=== PATIENT | female | born 1980 | race Caucasian/White ===

== ENCOUNTER 2018-02-12 16:34 | Emergency (ER) | payer OTHER ==
--- NOTE | 2018-02-12 17:59 | Ultrasound Report ---
Procedure Date: 02/12/2018 Accession Number: [id number] / [id number] Procedure: US - Duplex Ext Veins Left CPT Code: FULL RESULT: EXAM: LEFT LOWER EXTREMITY VENOUS ULTRASOUND EXAM DATE: 02/12/2018 05:38 PM. CLINICAL HISTORY: Recent travel, smokes, BCP, orthopedic surgery LLE. COMPARISON: None. TECHNIQUE: Real-time sonographic vascular imaging was performed by the hull outfit supervisor through the lower extremity utilizing both color-flow and Doppler spectral analysis. Multiple veterans contact representative static images were saved for review. FINDINGS: Common Femoral Vein (CFV): Normal. CFV-GSV Junction: Normal. Profunda Femoral Vein (PFV): Normal. Femoral Vein (FV) Prox: Normal. Femoral Vein (FV) Mid: Normal. Femoral Vein (FV) Dist: Normal. Popliteal Vein: Normal. Posterior Tibial Veins: Normal. Peroneal Veins: Normal. Contralateral Side CFV: Normal. Other: None. IMPRESSION: No evidence for deep venous thrombosis. RADIA
--- NOTE | 2018-02-12 18:37 | ED Physician Documentation ---
PD HPI LOWER EXT INJURY - Stated complaint Stated Complaint: L CALF PX - Chief complaint Chief Complaint: Ext Problem - History obtained from History obtained from: Patient, Family - History of Present Illness PD HPI LOW EXT INJURY LOCATION: Left, Lower leg Where injury occurred: Other Timing - onset: Today Timing - details: Gradual onset, Still present Worsened by: Moving, Palpating Associated symptoms: Swelling Recently seen: Not recently seen PD PAST MEDICAL HISTORY - Past Medical History Past Medical History: Yes Respiratory: Asthma - Past Surgical History Past Surgical History: Yes General: Cholecystectomy - Present Medications Home Medications: Ambulatory Orders Medication Instructions Recorded Confirmed Cyclobenzaprine [Flexeril] 10 mg ORAL QPM 02/12/18 02/12/18 Gabapentin 300 mg PO QPM 02/12/18 02/12/18 Meloxicam [Mobic] 7.5 mg PO DAILY 02/12/18 02/12/18 oxyCODONE [Roxicodone] 5 mg PO ONCE 02/12/18 02/12/18 - Allergies Allergies/Adverse Reactions: Allergies Allergy/AdvReac Type Severity Reaction Status Date / Time No Known Drug Allergies Allergy Verified 02/12/18 16:52 - Social History Does the pt smoke?: Yes Smoking Status: Current every day smoker Does the pt drink ETOH?: Yes Does the pt have substance abuse?: No - Immunizations Immunizations are current?: Yes Results - Vitals Vitals: Vital Signs - 24 hr 02/12/18 16:49 Temperature 36.5 C Heart Rate 93 Respiratory 18 Rate Blood Pressure 126/112 H O2 Saturation 100 Oxygen O2 Source Room air PD MEDICAL DECISION MAKING - Sepsis Event Vital Signs: Vital Signs - 24 hr 02/12/18 16:49 Temperature 36.5 C Heart Rate 93 Respiratory 18 Rate Blood Pressure 126/112 H O2 Saturation 100 Oxygen O2 Source Room air Departure - Departure Disposition: 01 Home, Self Care Clinical Impression: Leg pain Condition: Good Instructions: ED Muscle Pain Leg Cramps Follow-Up: LUIS ANTONIO AVILES [Primary Care Provider] - As Needed Comments: Your diagnostics today were within normal limits. there were no acute abnormalities. there was no dvt. you should keep your leg elevated and ice it as needed. You may return to the emergency department at any time for new, worsening or uncontrollable symptoms.
[2018-02-12 18:46] VITALS: BP 116/75
== END 2018-02-12 18:50 | disposition home or self-care (01) ==
LOC: ED 16:34
DX: M79.662 Pain in left lower leg (principal); M79.89 Other specified soft tissue disorders; F17.200 Nicotine dependence, unspecified, uncomplicated
CPT/HCPCS: 99281; 99283

== ENCOUNTER 2018-05-08 13:08 | Emergency (ER) | payer OTHER ==
[2018-05-08 13:35] LABS: BILIRUBIN,URINE NEGATIVE (NEGATIVE); GLUCOSE, URINE (UA) NEGATIVE (NEGATIVE); KETONES,URINE (UA) NEGATIVE (NEGATIVE); LEUKOCYTE ESTERASE, URINE NEGATIVE (NEGATIVE); NITRITE,URINE NEGATIVE (NEGATIVE); OCCULT BLOOD,URINE NEGATIVE (NEGATIVE); PROTEIN,URINE NEGATIVE (NEGATIVE); UROBILINOGEN,URINE 0.2 (NORMAL) E.U./dL (NORMAL)
[2018-05-08 13:42] LABS: CLARITY,URINE CLEAR (CLEAR); HCG UR QUAL NEGATIVE
--- NOTE | 2018-05-08 16:48 | ED Physician Documentation ---
PD HPI FEMALE - Stated complaint Stated Complaint: FEMALE - Chief complaint Chief Complaint: General - History obtained from History obtained from: Patient - History of Present Illness Timing - onset: Today Timing - details: Abrupt onset, Still present Associated symptoms: Vaginal pain, Vaginal discharge (mild), Dysuria, Urinary frequency. No: Fever, Vaginal bleeding, Genital sore/lesion Contributing factors: No: Exposed to STD Similar symptoms before: Has not had sx before Recently seen: Not recently seen Review of Systems Constitutional: denies: Fever, Chills, Myalgias Nose: denies: Rhinorrhea / runny nose, Congestion Throat: denies: Sore throat Respiratory: denies: Cough GI: denies: Abdominal Pain, Nausea, Vomiting, Diarrhea : reports: Dysuria, Frequency, Discharge (mild white/mucous). denies: Vaginal bleeding Skin: denies: Rash, Lesions PD PAST MEDICAL HISTORY - Past Medical History Respiratory: Asthma - Past Surgical History Past Surgical History: Yes General: Cholecystectomy - Present Medications Home Medications: Ambulatory Orders Medication Instructions Recorded Confirmed Metronidazole [Flagyl] 500 mg PO BID #14 tablet 05/08/18 Naproxen 375 mg PO BID #20 tablet 05/08/18 Omeprazole 20 mg PO 05/08/18 Phenazopyridine [Pyridium] 100 mg PO TID PRN #15 tablet 05/08/18 Pregabalin [Lyrica] 75 mg PO 05/08/18 - Allergies Allergies/Adverse Reactions: Allergies Allergy/AdvReac Type Severity Reaction Status Date / Time No Known Drug Allergies Allergy Verified 05/08/18 13:14 - Social History Does the pt smoke?: Yes Smoking Status: Current every day smoker Does the pt drink ETOH?: Yes Does the pt have substance abuse?: No - Immunizations Immunizations are current?: Yes PD ED PE NORMAL - Vitals Vital signs reviewed: Yes - General General: Alert and oriented X 3, No acute distress, Well developed/nourished - HEENT HEENT: Pharynx benign - Neck Neck: Supple, no meningeal sign, No adenopathy - Cardiac Cardiac: RRR, No murmur - Respiratory Respiratory: Clear bilaterally - Abdomen Abdomen: Normal bowel sounds, Soft, Non tender, Non distended, No organomegaly - Female Female : [employer] present, Other (external normal. Mild white discharge and redness inner labia left. Vaginal vault with moderate white milky discharge with some odor. Cervix with mild redness. No bleeding. No FB. ) - Rectal Rectal: Deferred Results - Vitals Vitals: Vital Signs - 24 hr 05/08/18 13:13 Temperature 36.4 C L Heart Rate 88 Respiratory 18 Rate Blood Pressure 120/71 O2 Saturation 97 Oxygen O2 Source Room air - Labs Labs: Laboratory Tests 05/08/18 13:30 Urine Color YELLOW Urine Clarity CLEAR Urine pH 5.0 Ur Specific [place] 1.025 Urine Protein NEGATIVE Urine Glucose (UA) NEGATIVE Urine Ketones NEGATIVE Urine Occult Blood NEGATIVE Urine Nitrite NEGATIVE Urine Bilirubin NEGATIVE Urine Urobilinogen 0.2 (NORMAL) Ur Leukocyte Esterase NEGATIVE Ur Microscopic Review NOT INDICATED Urine Culture Comments NOT INDICATED Urine HCG, Qual NEGATIVE PD MEDICAL DECISION MAKING - ED course Complexity details: reviewed results, considered differential (has dysuria but UA is negative. Pelvic exam with moderate white discharge and cervical redness c/w BV. Will treat that way. Some element could be yeast. ), d/w patient - Sepsis Event Vital Signs: Vital Signs - 24 hr 05/08/18 13:13 Temperature 36.4 C L Heart Rate 88 Respiratory 18 Rate Blood Pressure 120/71 O2 Saturation 97 Oxygen O2 Source Room air Departure - Departure Disposition: 01 Home, Self Care Clinical Impression: Dysuria, Bacterial vaginal infection Condition: Stable Record reviewed to determine appropriate education?: Yes Instructions: ED Vaginosis Bacterial Prescriptions: Metronidazole [Flagyl] 500 mg PO BID #14 tablet Naproxen 375 mg PO BID #20 tablet Phenazopyridine [Pyridium] 100 mg PO TID PRN #15 tablet PRN Reason: Pain Comments: Your urine sample looked normal. He did have a vaginal discharge that would be consistent with vaginitis presumably bacterial. We will treat this with Flagyl twice daily and also some anti-inflammatory naproxen twice daily. Use Tylenol if needed. Pyridium can help with the discomfort of urination which is a irritation of the urethra from the vaginitis. Recheck if not improving over the next several days to week. Discharge Date/Time: 05/08/18 17:43
[2018-05-08] MEDS ORDERED: metroNIDAZOLE 250 MG TABLET PO STA (17:19)
[2018-05-08] MEDS ORDERED: NAPROXEN 250 MG TABLET PO STA (17:19)
[2018-05-08] MEDS ORDERED: FLUCONAZOLE 100 MG TABLET PO STA (17:22)
[2018-05-08 17:43] VITALS: BP 118/74
== END 2018-05-08 17:43 | disposition home or self-care (01) ==
LOC: ED 13:08
DX: R30.0 Dysuria (principal); A49.9 Bacterial infection, unspecified; F17.200 Nicotine dependence, unspecified, uncomplicated
CPT/HCPCS: 81003; 81025; 87210; 87491; 87591; 99283; A9270; 81001; 87086

== ENCOUNTER 2018-07-26 16:20 | Emergency (ER) | payer OTHER ==
--- NOTE | 2018-07-26 17:31 | ED Physician Documentation ---
PD HPI LOWER EXT INJURY - Stated complaint Stated Complaint: L FT PX - Chief complaint Chief Complaint: Ext Problem - History obtained from History obtained from: Patient - History of Present Illness PD HPI LOW EXT INJURY LOCATION: Left (She has had multiple surgeries on her foot and leg and has had several nerves removed from her left lower leg. Today they noticed purple discoloration of the great toe. The foot is pretty much insensate at this point. They were worried about a vascular issue.) Review of Systems Constitutional: denies: Fever, Chills Respiratory: denies: Cough GI: denies: Abdominal Pain, Nausea : denies: Dysuria PD PAST MEDICAL HISTORY - Past Medical History Respiratory: Asthma - Past Surgical History Past Surgical History: Yes General: Cholecystectomy - Present Medications Home Medications: Ambulatory Orders Medication Instructions Recorded Confirmed Omeprazole 20 mg PO 05/08/18 Pregabalin [Lyrica] 75 mg PO 05/08/18 - Allergies Allergies/Adverse Reactions: Allergies Allergy/AdvReac Type Severity Reaction Status Date / Time No Known Drug Allergies Allergy Verified 07/26/18 16:37 - Social History Does the pt smoke?: Yes Smoking Status: Current every day smoker Does the pt drink ETOH?: Yes Does the pt have substance abuse?: No - Immunizations Immunizations are current?: Yes PD ED PE NORMAL - Vitals Vital signs reviewed: Yes - General General: Alert and oriented X 3, No acute distress - Extremities Extremities: Other (There is slight purplish discoloration of the tip of the great toe but with good cap refill and normal pedal pulses.) - Neuro Neuro: Alert and oriented X 3, Normal speech Results - Vitals Vitals: Vital Signs - 24 hr 07/26/18 16:34 Temperature 36.6 C Heart Rate 99 Respiratory 20 Rate Blood Pressure 129/98 H O2 Saturation 98 Oxygen O2 Source Room air PD MEDICAL DECISION MAKING - ED course ED course: I discussed with him that these findings are likely due to the decreasedAnd this may be an ongoing issue especially when it is cold. function in her left foot because of the surgery she has had there is no evidence of an active vascular issue. Departure - Departure Disposition: 01 Home, Self Care Clinical Impression: Injury of peripheral nerve of left lower extremity at foot level Qualifiers: Encounter type: initial encounter Peripheral nerve of lower extremity: deep peroneal Qualified Code(s): S94.22XA - Injury of deep peroneal nerve at ankle and foot level, left leg, initial encounter Condition: Good Record reviewed to determine appropriate education?: Yes Comments: Return for blue discoloration of the toes or pain or new findings. Follow-up with your surgeon as needed.
[2018-07-26 17:42] VITALS: BP 126/88
== END 2018-07-26 17:41 | disposition home or self-care (01) ==
LOC: ED 16:20
DX: S94.22XA Injury of deep peroneal nerve at ankle and foot level, left leg, initial encounter (principal); X58.XXXA Exposure to other specified factors, initial encounter; F17.200 Nicotine dependence, unspecified, uncomplicated
CPT/HCPCS: 99282; 99283

== ENCOUNTER 2019-07-10 11:27 | Emergency (ER) | payer OTHER ==
[2019-07-10 12:40] LABS: BILIRUBIN,URINE NEGATIVE (NEGATIVE); GLUCOSE, URINE (UA) NEGATIVE (NEGATIVE); KETONES,URINE (UA) NEGATIVE (NEGATIVE); LEUKOCYTE ESTERASE, URINE NEGATIVE (NEGATIVE); NITRITE,URINE NEGATIVE (NEGATIVE); OCCULT BLOOD,URINE NEGATIVE (NEGATIVE); PH,URINE 5.5 PH (5.0-7.5); PROTEIN,URINE NEGATIVE (NEGATIVE); UROBILINOGEN,URINE 0.2 (NORMAL) E.U./dL (NORMAL)
[2019-07-10 12:43] LABS: HCG UR QUAL NEGATIVE
--- NOTE | 2019-07-10 12:47 | ED Physician Documentation ---
History of Present Illness - Stated complaint Stated Complaint: BACK PX/CHILLS - Chief complaint Chief Complaint: General - History obtained from History obtained from: Patient - History of Present Illness Timing: How many days ago (4) Pain level max: 5 Pain level now: 4 - Additonal information Additional information: 38-year-old female states that she has had dysuria, urinary frequency and urgency for the past 4 days. Now has low back pain and chills. She also recently started Cymbalta, she is concerned that this could be a medication side effect. No vaginal bleeding or discharge. No change in sexual partners. No vomiting. She denies any fevers. Worse with urination. Nothing makes it better Review of Systems Ten Systems: 10 systems reviewed and negative Constitutional: reports: Chills. denies: Fever Nose: denies: Rhinorrhea / runny nose, Congestion Cardiac: denies: Palpitations Respiratory: denies: Cough GI: denies: Abdominal Pain, Nausea, Vomiting, Diarrhea : reports: Dysuria, Frequency, Hesitancy. denies: Now EGA Skin: denies: Rash Musculoskeletal: denies: Neck pain Neurologic: denies: Focal weakness, Numbness, Headache PD PAST MEDICAL HISTORY - Past Medical History Respiratory: Asthma - Past Surgical History Past Surgical History: Yes General: Cholecystectomy - Present Medications Home Medications: Ambulatory Orders Medication Instructions Recorded Confirmed Omeprazole 20 mg PO 05/08/18 Pregabalin [Lyrica] 75 mg PO 05/08/18 Cephalexin [Keflex] 500 mg PO Q6H #28 capsule 07/10/19 - Allergies Allergies/Adverse Reactions: Allergies Allergy/AdvReac Type Severity Reaction Status Date / Time No Known Drug Allergies Allergy Verified 07/10/19 11:43 - Social History Does the pt smoke?: Yes Smoking Status: Current every day smoker Does the pt drink ETOH?: Yes Does the pt have substance abuse?: No - Immunizations Immunizations are current?: Yes PD ED PE NORMAL - Vitals Vital signs reviewed: Yes - General General: Alert and oriented X 3, No acute distress - HEENT HEENT: Moist mucous membranes - Neck Neck: Supple, no meningeal sign - Cardiac Cardiac: RRR, Strong equal pulses - Respiratory Respiratory: No respiratory distress, Clear bilaterally - Abdomen Abdomen: Soft, Non tender, Non distended - Back Back: No spinal TTP (No midline tenderness to palpation or percussion. Mild left CVA tenderness.) - Derm Derm: Warm and dry - Extremities Extremities: No edema - Neuro Neuro: Alert and oriented X 3 - Psych Psych: Normal mood, Normal affect Results - Vitals Vitals: Vital Signs - 24 hr 07/10/19 07/10/19 11:39 13:03 Temperature 36.9 C Heart Rate 97 86 Respiratory 14 18 Rate Blood Pressure 124/89 H 119/82 H O2 Saturation 99 100 Oxygen O2 Source Room air - Labs Labs: Laboratory Tests 07/10/19 12:30 Urine Color YELLOW Urine Clarity [place]ZY Urine pH 5.5 Ur Specific [place] 1.025 Urine Protein NEGATIVE Urine Glucose (UA) NEGATIVE Urine Ketones NEGATIVE Urine Occult Blood NEGATIVE Urine Nitrite NEGATIVE Urine Bilirubin NEGATIVE Urine Urobilinogen 0.2 (NORMAL) Ur Leukocyte Esterase NEGATIVE Urine RBC 0-5 Urine WBC 4-5 Ur Squamous Epith Cells MANY Squamous H Urine Bacteria Many H Urine Mucus Marked Strands Ur Microscopic Review INDICATED Urine Culture Comments NOT INDICATED Urine HCG, Qual NEGATIVE PD MEDICAL DECISION MAKING - ED course Complexity details: reviewed results, re-evaluated patient, considered differential, d/w patient ED course: Patient with symptoms consistent with a UTI, possible early pyelo? Urinalysis is normal, but she did urinate just prior to arrival. Possible false negative? We will treat with Keflex and have her follow-up with her doctor for further care. She is very well-appearing, nontoxic. Afebrile. Patient counseled regarding signs and symptoms for which I believe and urgent re-evaluation would be necessary. Patient with good understanding of and agreement to plan and is comfortable going home at this time This document was made in part using voice recognition software. While efforts are made to proofread this document, sound alike and grammatical errors may occur. Departure - Departure Disposition: Home, Self Care Clinical Impression: Dysuria Back pain Qualifiers: Back pain location: low back pain Chronicity: acute Back pain laterality: left Sciatica presence: without sciatica Qualified Code(s): M54.5 - Low back pain Condition: Good Instructions: ED Dysuria Uncertain Cause Follow-Up: Lia Vera, [employer] [Primary Care Provider] - Within 1 week Prescriptions: Cephalexin [Keflex] 500 mg PO Q6H #28 capsule Comments: Given your symptoms, I am concerned for a UTI, despite a normal urinalysis. Take all antibiotics until gone. Return if you worsen. This could be due to the cymbalta, but I would take the antibiotics first to see how you progress before stopping it. Discharge Date/Time: 07/10/19 13:04
[2019-07-10 12:53] LABS: CLARITY,URINE HAZY (CLEAR)
[2019-07-10 13:04] VITALS: BP 119/82
[2019-07-10 13:04] LABS: BACTERIA,URINE Many /HPF (None Seen); MUCUS,URINE Marked Strands; RBC,URINE 0-5 /HPF (0-5); SQUAMOUS EPITHELIAL CELL,UR MANY Squamous (<= Few)
== END 2019-07-10 13:04 | disposition home or self-care (01) ==
LOC: ED 11:27
DX: R30.0 Dysuria (principal); R35.0 Frequency of micturition; M54.5 Low back pain; F17.200 Nicotine dependence, unspecified, uncomplicated
CPT/HCPCS: 81001; 81003; 81025; 87086; 99283

== ENCOUNTER 2019-08-30 17:10 | Emergency (ER) | payer OTHER ==
--- NOTE | 2019-08-30 17:31 | ED Physician Documentation ---
PD HPI LOWER EXT INJURY - Stated complaint Stated Complaint: LT FOOT PX - History obtained from History obtained from: Patient - History of Present Illness PD HPI LOW EXT INJURY LOCATION: Left, Toe (great toe with area of black skin and tenderness. Had this 1-2 months ago and thought it was a spot of frostbite (had been exposed to cold air, no cold contact nor wetness). It was 1/2 cm black area and then started hurting more and developed into pustule. Rx with Cephalexin and improved to small scaly spot that did not fully heal. Seem by PMD and had xray and bone scan 2 days ago at [facility]. 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 She felt it got cold injury again at the spot.). No: Fall, Laceration Timing - onset: How many days ago (few days of increased more than usual) Timing - details: Gradual onset Worsened by: Palpating. No: Moving Associated symptoms: Numbness. No: Weakness, Swelling Review of Systems Constitutional: denies: Fever, Chills Nose: denies: Rhinorrhea / runny nose, Congestion Throat: denies: Sore throat Respiratory: denies: Cough PD PAST MEDICAL HISTORY - Past Medical History Respiratory: Asthma - Past Surgical History Past Surgical History: Yes General: Cholecystectomy - Present Medications Home Medications: Ambulatory Orders Medication Instructions Recorded Confirmed Omeprazole 20 mg PO 05/08/18 Pregabalin [Lyrica] 75 mg PO 05/08/18 Cephalexin [Keflex] 500 mg PO Q6H #28 capsule 07/10/19 Capsaicin 1 applic TP TID #42.5 cream..g. 08/30/19 Doxycycline Monohydrate 100 mg PO BID #14 tablet 08/30/19 Hydrocodone/Acetaminophen [[place] 1 each PO Q6H PRN #20 tablet 08/30/19 5-325 Tablet] Naproxen 375 mg PO BID #20 tablet 08/30/19 - Allergies Allergies/Adverse Reactions: Allergies Allergy/AdvReac Type Severity Reaction Status Date / Time No Known Drug Allergies Allergy Verified 07/10/19 11:43 - Social History Does the pt smoke?: Yes Smoking Status: Current every day smoker Does the pt drink ETOH?: Yes Does the pt have substance abuse?: No - Immunizations Immunizations are current?: Yes PD ED PE NORMAL - Vitals Vital signs reviewed: Yes - General General: Alert and oriented X 3, No acute distress, Well developed/nourished - Neuro Neuro: Alert and oriented X 3, No motor deficit, Other (decreased sensation in great toe and dorsum of foot, baseline per patient from prior foot surgery. There is small 1/2 cm rounded area of dark skin (purple to black) at tip of great toe, with scaly edge. No discharge. There is good color and cap refill at proximal part of distal phalanx, just proximal to the dark area. Could be c/w prior frostbite at the tip of the toe. ) Results - Vitals Vitals: Oxygen O2 Source Room air PD MEDICAL DECISION MAKING - ED course Complexity details: reviewed results (Bone scan and xray report from [facility] showed normal xray and the bone scan showed normal bone; it says there was diminished flow in left foot c/w vasospasm.), considered differential (has CRPS and has black spot at tip of toe that is painful. Had had pustule there month ago and Rx with Keflex, and mostly improved but still small scaly skin lesion. Is hurting more the past couple of days. Had Bone scan 3 days ago at [facility] to evaluate the prior episode. ), d/w patient ED course: the tip of toe almost looks ischemic but just at 1/2 cm area, and there is good color and cap refill just below it. Consider frostbite lesion as she thinks. Could have been end vessel occlusive lesion from spasm. Consider early infect again, as it had gotten a month ago. So NSAIDs, abx, and also consider baby ASA with concern of low flow. Talked with patient about improving flow at time (woul d be potential for frostbite lesion, though studies of this in frostbite have been neutral/nonbeneficial). Departure - Departure Disposition: 01 Home, Self Care Clinical Impression: Pain of left great toe Condition: Stable Record reviewed to determine appropriate education?: Yes Follow-Up: Lia Vera, OPERATING SYSTEMS PROGRAMMER [Primary Care Provider] - Prescriptions: Capsaicin 1 applic TP TID #42.5 cream..g. Doxycycline Monohydrate 100 mg PO BID #14 tablet Hydrocodone/Acetaminophen [[place] 5-325 Tablet] 1 each PO Q6H PRN #20 tablet PRN Reason: Pain Naproxen 375 mg PO BID #20 tablet Comments: You can continue some moisturizing cream for the tip of the toe. Also consider augmenting blood flow with capsaicin cream lightly to the toe to 3 times a day. Take a baby aspirin daily to ensure there is good blood flow with no clogging in the small vessels at the tip of the toe. Currently for the pain take naproxen anti-inflammatory twice daily and add Tylenol or hydrocodone if needed for pain. With concern of an infection brewing at the area, also take doxycycline twice daily for a week. Recheck if not improved well over the next several days. Discharge Date/Time: 08/30/19 19:33
[2019-08-30 17:37] VITALS: BP 132/100
[2019-08-30] MEDS ORDERED: oxyCODONE 5 MG TABLET PO STA (17:59)
[2019-08-30] MEDS ORDERED: NAPROXEN 250 MG TABLET PO STA (18:00)
[2019-08-30] MEDS ORDERED: ASPIRIN EC 81 MG TABLET PO STA (18:00)
[2019-08-30] MEDS ORDERED: DOXYCYCLINE 100 MG TABLET PO STA (18:00)
== END 2019-08-30 19:33 | disposition home or self-care (01) ==
LOC: ED 17:10
DX: M79.675 Pain in left toe(s) (principal); F17.200 Nicotine dependence, unspecified, uncomplicated
CPT/HCPCS: 99283; A9270

== ENCOUNTER 2020-02-01 16:48 | Emergency (ER) | payer OTHER ==
[2020-02-01] MEDS ORDERED: LIDOCAINE VISCOUS 2% 15 ML UDC MM STA (17:02)
[2020-02-01] MEDS ORDERED: MAG HYDROX/AL HYDROX/SIMETH 30 ML UDC PO STA (17:02)
[2020-02-01] MEDS ORDERED: SUCRALFATE 1 GM/10 ML UDC PO STA (17:02)
[2020-02-01] MEDS ORDERED: FAMOTIDINE 20 MG TABLET PO STA (17:02)
--- NOTE | 2020-02-01 17:32 | ED Physician Documentation ---
PD HPI ABD PAIN - Stated complaint Stated Complaint: ABD PX/BACK PX - Chief complaint Chief Complaint: Abd Pain - History obtained from History obtained from: Patient - History of Present Illness Timing - onset: How many weeks ago (1) Timing - duration: Weeks (1) Timing - details: Gradual onset Pain level max: 8 Pain level now: 8 Quality: Aching, Pain Location: Epigastric Radiation: No: Chest, , Lower back, Left flank, Left shoulder, Right flank, Right shoulder, Upper back Improved by: Other (nothing) Worsened by: Eating - Additional information Additional information: 39-year-old female presents to the emergency department stating that she was taking very high doses of meloxicam recently. She started at 30 mg daily, then 30 mg twice a day and eventually got up to 90 mg daily. Has had abdominal pain since that time. Started on Prilosec 1 week ago. Increasing pain today. She states that her stools were dark this morning, but no nghia blood. 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) - Past Surgical History Past Surgical History: Yes General: Cholecystectomy - Present Medications Home Medications: Ambulatory Orders Medication Instructions Recorded Confirmed Famotidine [Pepcid] 20 mg PO BID #60 tablet 02/01/20 Hydrocodone/Acetaminophen [[place] 1 each PO ONCE PRN 02/01/20 02/01/20 5-325 Tablet] Omeprazole 40 mg PO DAILY 02/01/20 02/01/20 Oxycodone HCl/Acetaminophen 1 - 2 each PO Q6H PRN #10 tablet 02/01/20 [Percocet 5-325 mg Tablet] Sucralfate [Carafate] 1 gm PO ACHS #60 tablet 02/01/20 Trazodone HCl 100 mg PO QPM 02/01/20 02/01/20 - Allergies Allergies/Adverse Reactions: Allergies Allergy/AdvReac Type Severity Reaction Status Date / Time No Known Drug Allergies Allergy Verified 02/01/20 16:56 - Social History Does the pt smoke?: Yes Smoking Status: Current every day smoker Does the pt drink ETOH?: Yes Does the pt have substance abuse?: No - Immunizations Immunizations are current?: Yes PD ED PE NORMAL - Vitals Vital signs reviewed: Yes - General General: Alert and oriented X 3, No acute distress, Well developed/nourished - HEENT HEENT: Moist mucous membranes - Neck Neck: Supple, no meningeal sign - Cardiac Cardiac: RRR - Respiratory Respiratory: No respiratory distress, Clear bilaterally - Abdomen Abdomen: Soft, Non distended, Other (Tender to palpation epigastric without peritoneal signs) - Back Back: No CVA TTP - Derm Derm: Warm and dry - Extremities Extremities: No edema - Neuro Neuro: Alert and oriented X 3 - Psych Psych: Normal mood, Normal affect Results - Vitals Vitals: Vital Signs - 24 hr 02/01/20 02/01/20 02/01/20 16:52 16:57 19:14 Temperature 36.3 C L Heart Rate 101 H 104 H 87 Respiratory 18 16 18 Rate Blood Pressure 126/77 134/88 H 124/77 O2 Saturation 97 98 100 Oxygen O2 Source Room air - Labs Labs: Laboratory Tests 02/01/20 02/01/20 02/01/20 17:30 17:30 17:30 WBC 8.4 RBC 4.28 Hgb 13.2 Hct 38.9 MCV 90.9 MCH 30.8 MCHC 33.9 RDW 12.5 Plt Count 456 H MPV 9.3 Neut # (Auto) 4.5 Lymph # (Auto) 2.9 [place] # (Auto) 0.7 Eos # (Auto) 0.2 Baso # (Auto) 0.1 Absolute Nucleated RBC 0.00 Nucleated RBC % 0.0 Sodium 136 Potassium 3.8 Chloride 102 Carbon Dioxide 26 Anion Gap 8.0 BUN 14 Creatinine 1.0 Estimated GFR (MDRD) 62 L Glucose 84 Calcium 9.3 Total Bilirubin 0.4 AST 19 ALT 29 Alkaline Phosphatase 91 Total Protein 7.6 Albumin 4.5 Globulin 3.1 Albumin/Globulin Ratio 1.5 Lipase 22 Urine Color YELLOW Urine Clarity CLEAR Urine pH 7.0 Ur Specific [place] 1.015 Urine Protein NEGATIVE Urine Glucose (UA) NEGATIVE Urine Ketones NEGATIVE Urine Occult Blood TRACE-INTA Urine Nitrite NEGATIVE Urine Bilirubin NEGATIVE Urine Urobilinogen 0.2 (NORMAL) Ur Leukocyte Esterase NEGATIVE Ur Microscopic Review NOT INDICATED Urine Culture Comments NOT INDICATED Urine HCG, Qual NEGATIVE - Rads (name of study) CT abdomen pelvis Radiology: Prelim report reviewed, EMP read contemporaneously, See rad report PD MEDICAL DECISION MAKING - ED course Complexity details: reviewed results, re-evaluated patient, considered differential, d/w patient ED course: Patient with what appears to be gastritis from overuse of meloxicam. She is already on a PPI. We will add an H2 renee and Carafate. She has hydrocodone at home for pain. Counseled regarding dietary changes. Patient counseled regarding signs and symptoms for which I believe and urgent re-evaluation would be necessary. Patient with good understanding of and agreement to plan and is comfortable going home at this time This document was made in part using voice recognition software. While efforts are made to proofread this document, sound alike and grammatical errors may occur. No lower abdominal or pelvic pain. No flank pain 1. Nonobstructing bilateral nephrolithiasis. 2. 2 mm calculus at the left ureterovesicular junction. There is no upstream hydroureter or hydronephrosis suggesting this is a nonobstructing stone; however ureteral colic may be present. Please correlate clinically. 3. No other acute intra-abdominal findings. Normal appendix. 4. Questionable pedunculated uterine fibroid. Nonemergent pelvic ultrasound recommended to further characterize this finding. 5. Enlarged bilateral ovaries. The significance of this finding is unclear. If there is clinical suspicion for ovarian torsion, emergent pelvic ultrasound could be used to ensure adequate blood flow bilaterally. Alternatively, nonemergent pelvic ultrasound could be used to further characterize findings Departure - Departure Disposition: 01 Home, Self Care Clinical Impression: Gastritis Qualifiers: Gastritis type: unspecified gastritis Chronicity: acute Gastritis bleeding: presence of bleeding unspecified Qualified Code(s): K29.00 - Acute gastritis without bleeding Condition: Good Instructions: ED Gastritis Follow-Up: Lia Vera ARNP [Primary Care Provider] - Within 3 Days Prescriptions: Sucralfate [Carafate] 1 gm PO ACHS #60 tablet Famotidine [Pepcid] 20 mg PO BID #60 tablet Oxycodone HCl/Acetaminophen [Percocet 5-325 mg Tablet] 1 - 2 each PO Q6H PRN #10 tablet PRN Reason: pain Comments: Avoid any fried, spicy foods. Avoid any caffeine. Avoid any anti- inflammatories. Avoid alcohol. We will add Pepcid to your medication list as well as Carafate. Follow-up with your doctor for further care. Do not drink alcohol or drive while on narcotic pain medicine. Note that many narcotic pain relievers also contain tylenol/acetaminophen. Please ensure that your total dose of acetaminophen from all sources does not exceed 3 grams (3000mg) per day. You may constipated on this medication, take a stool softener such as "Colace" t wice a day while you are on it. Also recommend a [id number] laxative such as senna or MiraLAX any day that you do not have a bowel movement. If you received narcotic pain medication in the emergency department, do not drive or operate machinery for the next [address] scan results. 1. Nonobstructing bilateral nephrolithiasis. 2. 2 mm calculus at the left ureterovesicular junction. There is no upstream hydroureter or hydronephrosis suggesting this is a nonobstructing stone; however ureteral colic may be present. Please correlate clinically. 3. No other acute intra-abdominal findings. Normal appendix. 4. Questionable pedunculated uterine fibroid. Nonemergent pelvic ultrasound recommended to further characterize this finding. 5. Enlarged bilateral ovaries. The significance of this finding is unclear. If there is clinical suspicion for ovarian torsion, emergent pelvic ultrasound could be used to ensure adequate blood flow bilaterally. Alternatively, nonemergent pelvic ultrasound could be used to further characterize findings.
[2020-02-01] MEDS ORDERED: IOVERSOL 320 100 ML VIAL IVP ONE ×2 (17:36→19:06)
[2020-02-01] MEDS ORDERED: IOVERSOL 320 50 ML VIAL ONE (17:36)
[2020-02-01 17:44] LABS: BASOPHILS # (AUTO) 0.1 10^3/uL (0.0-0.1); BASOPHILS % (AUTO) 0.7 %; EOSINOPHILS # (AUTO) 0.2 10^3/uL (0.0-0.7); EOSINOPHILS % (AUTO) 1.8 %; HGB - HEMOGLOBIN 13.2 g/dL (12.0-16.0); LYMPHOCYTES # (AUTO) 2.9 10^3/uL (1.5-3.5); LYMPHOCYTES % (AUTO) 34.9 %; MEAN CORPUSCULAR HEMOGLOBIN 30.8 pg (27.0-31.0); MEAN CORPUSCULAR HGB CONC 33.9 g/dL (32.0-36.0); MEAN CORPUSCULAR VOLUME 90.9 fL (81.0-99.0); MEAN PLATELET VOLUME 9.3 fL (7.9-10.8); MONOCYTES # (AUTO) 0.7 10^3/uL (0.0-1.0); MONOCYTES % (AUTO) 8.8 %; NEUTROPHILS # (AUTO) 4.5 10^3/uL (1.5-6.6); NEUTROPHILS % (AUTO) 53.4 %; PLT - PLATELET COUNT 456 10^3/uL (130-450); RED BLOOD COUNT 4.28 10^6/uL (4.20-5.40); RED CELL DISTRIBUTION WIDTH 12.5 % (12.0-15.0); WHITE BLOOD COUNT 8.4 x10^3/uL (4.8-10.8)
[2020-02-01 17:51] LABS: BILIRUBIN,URINE NEGATIVE (NEGATIVE); GLUCOSE, URINE (UA) NEGATIVE (NEGATIVE); KETONES,URINE (UA) NEGATIVE (NEGATIVE); LEUKOCYTE ESTERASE, URINE NEGATIVE (NEGATIVE); NITRITE,URINE NEGATIVE (NEGATIVE); OCCULT BLOOD,URINE TRACE-INTA (NEGATIVE); PROTEIN,URINE NEGATIVE (NEGATIVE); UROBILINOGEN,URINE 0.2 (NORMAL) E.U./dL (NORMAL)
[2020-02-01 17:53] LABS: CLARITY,URINE CLEAR (CLEAR)
[2020-02-01 17:54] LABS: HCG UR QUAL NEGATIVE
[2020-02-01 17:58] LABS: ALBUMIN 4.5 g/dL (3.2-5.5); ALBUMIN/GLOBULIN RATIO 1.5 (1.0-2.2); BILIRUBIN,TOTAL 0.4 mg/dL (0.2-1.0); CALCIUM 9.3 mg/dL (8.5-10.3); TOTAL PROTEIN 7.6 g/dL (6.7-8.2)
[2020-02-01] MEDS ORDERED: MORPHINE 2 MG/ML CARPUJECT IVP STA ×2 (18:29→19:24)
[2020-02-01] MEDS ORDERED: IOVERSOL 320 50 ML VIAL PO ONE (19:06)
[2020-02-01 19:15] VITALS: BP 124/77
[2020-02-01] MEDS ORDERED: PANTOPRAZOLE 40 MG VIAL IVP STA (19:24)
--- NOTE | 2020-02-01 19:28 | CT Report ---
PROCEDURE: Abdomen/Pelvis W INDICATIONS: h/o ulcers, now diffuse abd pain CONTRAST: IV CONTRAST: Optiray 320 ml: 100 PO CONTRAST: Optiray 320 ml50 TECHNIQUE: After the administration of oral and intravenous contrast, 5 mm thick sections acquired from the diap hragms to the symphysis. 5 mm thick coronal and sagittal reformats were acquired. For radiation dos e reduction, the following was used: automated exposure control, adjustment of mA and/or kV accordin g to patient size. COMPARISON: None. FINDINGS: Image quality: Excellent. ABDOMEN: Lung bases: Lung bases are clear. Heart size is normal. Solid organs: Liver and spleen are normal in size and enhancement. Focal fat is present at the falci form ligament. Gallbladder is surgically absent Biliary system is non dilated. Pancreas enhances no rmally. No adrenal nodules. Kidneys demonstrate normal size and enhancement, without hydronephrosis . 3 mm nonobstructing calculi are present within the lower pole of the right kidney and 2 mm nonobst ructing calculi are present within the left renal collecting system. No right ureterolithiasis. There is a 2 mm calculus at the left ureterovesicular junction (series 3/image 88). No hydroureter. Peritoneum and bowel: Bowel loops demonstrate normal wall thickness and caliber. The appendix is thi n walled and gas-filled. No free fluid or air. Nodes and vessels: No retroperitoneal or mesenteric adenopathy by size criteria. Aorta and inferior vena cava are normal in size. Miscellaneous: No ventral hernias. PELVIS: Genitourinary: Bladder wall thickness is normal. No bladder calculi. The uterus is grossly unremark able. There is likely a pedunculated fibroid off the anterior left uterus. The bilateral ovaries appe ar enlarged raising the suspicion for the presence of multiple follicular cysts. Miscellaneous: No inguinal hernias or adenopathy. Bones: No suspicious bony lesions. No vertebral body compression fractures. IMPRESSION: 1. Nonobstructing bilateral nephrolithiasis. 2. 2 mm calculus at the left ureterovesicular junction. There is no upstream hydroureter or hydroneph rosis suggesting this is a nonobstructing stone; however ureteral colic may be present. Please correl ate clinically. 3. No other acute intra-abdominal findings. Normal appendix. 4. Questionable pedunculated uterine fibroid. Nonemergent pelvic ultrasound recommended to further ch aracterize this finding. 5. Enlarged bilateral ovaries. The significance of this finding is unclear. If there is clinical susp icion for ovarian torsion, emergent pelvic ultrasound could be used to ensure adequate blood flow corky aterally. Alternatively, nonemergent pelvic ultrasound could be used to further characterize findings . These findings were discussed with Dr. Alejandro at 7:26 PM on 02/01/2020. Reviewed by: Nelly Blackmon MD on 02/01/2020 7:26 PM PDT Approved by: Nelly Blackmon MD on 02/01/2020 7:26 PM PDT Station ID: [id number]
[2020-02-01] MEDS ORDERED: oxyCODONE 5 MG TABLET PO STA (19:48)
== END 2020-02-01 20:04 | disposition home or self-care (01) ==
LOC: ED 16:48
DX: K29.00 Acute gastritis without bleeding (principal); N20.2 Calculus of kidney with calculus of ureter; E28.2 Polycystic ovarian syndrome; F17.200 Nicotine dependence, unspecified, uncomplicated
CPT/HCPCS: 36415; 74177; 80053; 81003; 81025; 83690; 85025; 96374; 96376; 99284; A9270; Q9967; 81001; 87086

== ENCOUNTER 2020-04-13 09:11 | Emergency (ER) | payer OTHER ==
--- NOTE | 2020-04-13 09:22 | ED Physician Documentation ---
PD HPI SKIN - Stated complaint Stated Complaint: RASH - Chief complaint Chief Complaint: Wound - History obtained from History obtained from: Patient - History of Present Illness Timing - onset: How many days ago (4) Timing - duration: Days (4) Timing - details: Gradual onset (had pain lower lumbar back to left and now with some rash since yesterday.), Still present Location: Abdomen, Back Quality / character: Painful (mild), Burning Associated symptoms: No: Fever, Myalgias, N/V/D Contributing factors: No: Recent illness Similar symptoms before: Diagnosis (had shingles on lower leg in the past.) Review of Systems Constitutional: denies: Fever, Chills Nose: denies: Rhinorrhea / runny nose, Congestion Throat: denies: Sore throat Respiratory: denies: Cough GI: denies: Abdominal Pain, Nausea, Vomiting, Diarrhea Skin: reports: Rash (since yesterday) Musculoskeletal: reports: Back pain PD PAST MEDICAL HISTORY - Past Medical History Past Medical History: Yes Cardiovascular: None Respiratory: Asthma Neuro: None Endocrine/Autoimmune: None GI: GERD 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 HEENT: None Psych: None Musculoskeletal: None Derm: Herpes zoster - Past Surgical History Past Surgical History: Yes General: Cholecystectomy - Present Medications Home Medications: Ambulatory Orders Medication Instructions Recorded Confirmed Famotidine [Pepcid] 20 mg PO BID #60 tablet 02/01/20 Hydrocodone/Acetaminophen [[place] 1 each PO ONCE PRN 02/01/20 02/01/20 5-325 Tablet] Omeprazole 40 mg PO DAILY 02/01/20 02/01/20 Oxycodone HCl/Acetaminophen 1 - 2 each PO Q6H PRN #10 tablet 02/01/20 [Percocet 5-325 mg Tablet] Sucralfate [Carafate] 1 gm PO ACHS #60 tablet 02/01/20 Trazodone HCl 100 mg PO QPM 02/01/20 02/01/20 Hydrocodone/Acetaminophen [[place] 1 each PO Q6H PRN #12 tablet 04/13/20 5-325 Tablet] Valacyclovir HCl [Valacyclovir] 1,000 mg PO TID #18 tablet 04/13/20 dexAMETHasone [Decadron] 4 mg PO DAILY #5 tablet 04/13/20 - Allergies Allergies/Adverse Reactions: Allergies Allergy/AdvReac Type Severity Reaction Status Date / Time No Known Drug Allergies Allergy Verified 02/01/20 16:56 - Social History Does the pt smoke?: No Smoking Status: Former smoker Does the pt drink ETOH?: Yes ETOH Use: Wine Does the pt have substance abuse?: No - Immunizations Immunizations are current?: Yes PD ED PE NORMAL - Vitals Vital signs reviewed: Yes - General General: Alert and oriented X 3, No acute distress, Well developed/nourished - Abdomen Abdomen: Normal bowel sounds, Soft, Other (tenderness left anterolateral abd of the soft tissue really. Not tender to deeper palpation. ) - Derm Derm: Normal color, Warm and dry, Other (left side paravertebral area in band like area has spotty red rash without vesicles as yet. Nonconfluent rash at this time. Tenderness of the soft tissue there and laterally without rash in the lateral tender area. Some small spots of rash right adjacent to spine at same level. ) Results - Vitals Vitals: Vital Signs - 24 hr 04/13/20 04/13/20 04/13/20 09:13 09:24 10:17 Temperature 36.4 C L Heart Rate 104 H 96 93 Respiratory 16 16 16 Rate Blood Pressure 131/84 H 135/93 H 129/91 H O2 Saturation 98 98 100 Oxygen O2 Source Room air PD MEDICAL DECISION MAKING - ED course Complexity details: considered differential (bandlike area of tenderness at about T9 level to the left, with slight blisters started just adjacent to spine on right as well. ), d/w patient Departure - Departure Disposition: 01 Home, Self Care Clinical Impression: Herpes zoster infection of thoracic region Condition: Stable Record reviewed to determine appropriate education?: Yes Instructions: ED Shingles Follow-Up: Lia Vera, STUDY DIRECTOR [Primary Care Provider] - Prescriptions: dexAMETHasone [Decadron] 4 mg PO DAILY #5 tablet Hydrocodone/Acetaminophen [[place] 5-325 Tablet] 1 each PO Q6H PRN #12 tablet PRN Reason: Pain Valacyclovir HCl [Valacyclovir] 1,000 mg PO TID #18 tablet Comments: This does look like shingles. Use valacyclovir 3 times a day as directed. Decadron steroid for inflammation of the nerve roots daily as directed as well. Tylenol and/or ibuprofen as needed for pains. Add hydrocodone if needed for worse pain. Most common time course for shingles is worsening of symptoms gradually over 5 days and peaking at that point and then slowly resolving over 2 or 3 weeks. Discharge Date/Time: 04/13/20 10:20
[2020-04-13] MEDS ORDERED: CHERRY SYRUP 10 ML UDC PO ONE (09:44)
[2020-04-13] MEDS ORDERED: ACYCLOVIR 200 MG CAPSULE PO STA (09:44)
[2020-04-13] MEDS ORDERED: DEXAMETHASONE 10 MG/ML VIAL PO STA (09:44)
[2020-04-13 10:20] VITALS: BP 129/91
== END 2020-04-13 10:20 | disposition home or self-care (01) ==
LOC: ED 09:11
DX: B02.9 Zoster without complications (principal); Z87.891 Personal history of nicotine dependence
CPT/HCPCS: 99283; A9270

== ENCOUNTER 2020-04-14 11:01 | Emergency (ER) | payer OTHER ==
--- NOTE | 2020-04-14 12:41 | ED Physician Documentation ---
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 HEENT: None Psych: None Musculoskeletal: None Derm: Herpes zoster - Past Surgical History Past Surgical History: Yes General: Cholecystectomy - Present Medications Home Medications: Ambulatory Orders Medication Instructions Recorded Confirmed Famotidine [Pepcid] 20 mg PO BID #60 tablet 02/01/20 Hydrocodone/Acetaminophen [[place] 1 each PO ONCE PRN 02/01/20 02/01/20 5-325 Tablet] Omeprazole 40 mg PO DAILY 02/01/20 02/01/20 Oxycodone HCl/Acetaminophen 1 - 2 each PO Q6H PRN #10 tablet 02/01/20 [Percocet 5-325 mg Tablet] Sucralfate [Carafate] 1 gm PO ACHS #60 tablet 02/01/20 Trazodone HCl 100 mg PO QPM 02/01/20 02/01/20 Hydrocodone/Acetaminophen [[place] 1 each PO Q6H PRN #12 tablet 04/13/20 5-325 Tablet] Valacyclovir HCl [Valacyclovir] 1,000 mg PO TID #18 tablet 04/13/20 dexAMETHasone [Decadron] 4 mg PO DAILY #5 tablet 04/13/20 Albuterol 2.5 mg INH Q4H PRN #30 neb 04/14/20 Albuterol Sulfate [Albuterol 2 puffs IH QID #1 hfa.aer.ad 04/14/20 Sulfate Hfa] Nebulizer [Aeroneb Go Nebulizer] 1 each MC QID #1 each 04/14/20 - Allergies Allergies/Adverse Reactions: Allergies Allergy/AdvReac Type Severity Reaction Status Date / Time No Known Drug Allergies Allergy Verified 04/14/20 11:12 - Social History Does the pt smoke?: No Smoking Status: Never smoker Does the pt drink ETOH?: Yes Does the pt have substance abuse?: No - Immunizations Immunizations are current?: Yes PD ED PE NORMAL - Vitals Vital signs reviewed: Yes - General General: Alert and oriented X 3, Well developed/nourished, Other (some conversational dyspnea but no notable wheezing. ) - HEENT HEENT: Ears normal, Pharynx benign - Neck Neck: Supple, no meningeal sign, No adenopathy - Cardiac Cardiac: RRR, No murmur - Respiratory Respiratory: No: Clear bilaterally (no coarse sounds. prolonged exp phase. mild exp wheezing diffusely. ) - Abdomen Abdomen: Soft, Non tender - Derm Derm: Normal color, Warm and dry - Extremities Extremities: No edema, No calf tenderness / cord - Neuro Neuro: Alert and oriented X 3, No motor deficit Results - Vitals Vitals: Vital Signs - 24 hr 04/14/20 04/14/20 04/14/20 11:12 13:27 13:49 Temperature 36.9 C Heart Rate 92 89 89 Respiratory 20 16 18 Rate Blood Pressure 131/83 H 143/85 H O2 Saturation 96 97 04/14/20 14:00 Temperature Heart Rate 94 Respiratory 18 Rate Blood Pressure 134/85 H O2 Saturation 97 Oxygen O2 Source Room air PD MEDICAL DECISION MAKING - ED course Complexity details: re-evaluated patient (improved with neb. ), considered differential (seems more RAD from the atmospheric smoke and not infectious. ), d/w patient Departure - Departure Disposition: 01 Home, Self Care Clinical Impression: Reactive airway disease Qualifiers: Asthma severity: mild Asthma persistence: intermittent Asthma complication type: with acute exacerbation Qualified Code(s): J45.21 - Mild intermittent asthma with (acute) exacerbation Condition: Stable Record reviewed to determine appropriate education?: Yes Instructions: ED Reactive Airway Disease Follow-Up: Lia Vera ARNP [Primary Care Provider] - Prescriptions: Nebulizer [Aeroneb Go Nebulizer] 1 each MC QID #1 each Albuterol 2.5 mg INH Q4H PRN #30 neb PRN Reason: Wheezing Albuterol Sulfate [Albuterol Sulfate Hfa] 2 puffs IH QID #1 hfa.aer.ad Comments: Use the albuterol inhaler or nebulizer 4 times a day as needed for wheezing. Continue your current steroid regimen. You could add an antihistamine such as cetirizine or Benadryl for potential allergy cause. Recheck if not improving well over the next few days. Discharge Date/Time: 04/14/20 14:37
[2020-04-14] MEDS ORDERED: IPRATROPIUM/ALBUTEROL 3 ML NEB INH STA (13:07)
[2020-04-14] MEDS ORDERED: diphenhydrAMINE 25 MG CAPSULE PO STA (13:07)
[2020-04-14] MEDS ORDERED: ONDANSETRON ODT 4 MG TABLET TL STA (13:09)
[2020-04-14 14:34] VITALS: BP 134/85
== END 2020-04-14 14:37 | disposition home or self-care (01) ==
LOC: ED 11:01
DX: J45.21 Mild intermittent asthma with (acute) exacerbation (principal)
CPT/HCPCS: 94640; 99283; 99284; A9270; Q0162

== ENCOUNTER 2020-04-21 17:44 | Emergency (ER) | payer OTHER ==
--- NOTE | 2020-04-21 18:58 | ED Physician Documentation ---
PD HPI SKIN - Stated complaint Stated Complaint: SHINGLES - Chief complaint Chief Complaint: Wound - History obtained from History obtained from: Patient - History of Present Illness Timing - onset: How many weeks ago (2) Timing - details: Gradual onset, Still present (had Dx shingles on lower thoracic area and Rx with Valtrex, steroids, pain meds for it. It was improving and finished meds 3 days ago, but with increased symptoms again since yesterday.) Location: Back Quality / character: Painful, Burning Associated symptoms: Myalgias. No: Fever, N/V/D Similar symptoms before: Diagnosis (Recent Dx shingles in that area. Rash appears similar still.) Recently seen: Emergency Dept Review of Systems Constitutional: reports: Myalgias. 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 HEENT: None Psych: None Musculoskeletal: None Derm: Herpes zoster - Past Surgical History Past Surgical History: Yes General: Cholecystectomy - Present Medications Home Medications: Ambulatory Orders Medication Instructions Recorded Confirmed Famotidine [Pepcid] 20 mg PO BID #60 tablet 02/01/20 Hydrocodone/Acetaminophen [[place] 1 each PO ONCE PRN 02/01/20 02/01/20 5-325 Tablet] Omeprazole 40 mg PO DAILY 02/01/20 02/01/20 Oxycodone HCl/Acetaminophen 1 - 2 each PO Q6H PRN #10 tablet 02/01/20 [Percocet 5-325 mg Tablet] Sucralfate [Carafate] 1 gm PO ACHS #60 tablet 02/01/20 Trazodone HCl 100 mg PO QPM 02/01/20 02/01/20 Hydrocodone/Acetaminophen [[place] 1 each PO Q6H PRN #12 tablet 04/13/20 5-325 Tablet] Valacyclovir HCl [Valacyclovir] 1,000 mg PO TID #18 tablet 04/13/20 dexAMETHasone [Decadron] 4 mg PO DAILY #5 tablet 04/13/20 Albuterol 2.5 mg INH Q4H PRN #30 neb 04/14/20 Albuterol Sulfate [Albuterol 2 puffs IH QID #1 hfa.aer.ad 04/14/20 Sulfate Hfa] Nebulizer [Aeroneb Go Nebulizer] 1 each MC QID #1 each 04/14/20 Hydrocodone/Acetaminophen 1 each PO Q6H PRN #18 tablet 04/21/20 [Hydrocodone-Acetamin 5-325 mg] Valacyclovir HCl [Valacyclovir] 1,000 mg PO TID #20 tablet 04/21/20 dexAMETHasone [Decadron] 4 mg PO DAILY #7 tablet 04/21/20 - Allergies Allergies/Adverse Reactions: Allergies Allergy/AdvReac Type Severity Reaction Status Date / Time No Known Drug Allergies Allergy Verified 04/21/20 18:29 - Social History Does the pt smoke?: No Smoking Status: Never smoker Does the pt drink ETOH?: Yes Does the pt have substance abuse?: No - Immunizations Immunizations are current?: Yes PD ED PE NORMAL - Vitals Vital signs reviewed: Yes - General General: Alert and oriented X 3, No acute distress, Well developed/nourished - Abdomen Abdomen: Soft, Non tender - Back Back: No CVA TTP, No spinal TTP, Other (lower thoracic to upper lumbar area with patchy bumpy tender rash without any purulence nor cellulitic look. Looks similar but improved from recent visit (I had seen her then as well). ) Results - Vitals Vitals: Vital Signs - 24 hr 04/21/20 04/21/20 18:25 19:41 Temperature 36.7 C 36.8 C Heart Rate 98 140 H Respiratory 16 20 Rate Blood Pressure 132/82 H 126/85 H O2 Saturation 97 98 Oxygen O2 Source Room air PD MEDICAL DECISION MAKING - ED course Complexity details: considered differential (Persistent shingles rash and increased symptoms after finishing medications several days ago. We can re-dose the course of the antiviral and steroids. Provide more pain medicine.), d/w patient Departure - Departure Disposition: 01 Home, Self Care Clinical Impression: Herpes zoster infection of thoracic region Condition: Stable Record reviewed to determine appropriate education?: Yes Instructions: ED Shingles Follow-Up: Lia Vera, MOWING MACHINE OPERATOR [Primary Care Provider] - Prescriptions: dexAMETHasone [Decadron] 4 mg PO DAILY #7 tablet Hydrocodone/Acetaminophen [Hydrocodone-Acetamin 5-325 mg] 1 each PO Q6H PRN #18 tablet PRN Reason: Pain Valacyclovir HCl [Valacyclovir] 1,000 mg PO TID #20 tablet Discharge Date/Time: 04/21/20 19:42
[2020-04-21] MEDS ORDERED: HYDROcod/ACETAM 5/325 MG TABLET PO STA (19:19)
[2020-04-21] MEDS ORDERED: DEXAMETHASONE 10 MG/ML VIAL PO STA (19:19)
[2020-04-21] MEDS ORDERED: CHERRY SYRUP 10 ML UDC PO ONE (19:19)
[2020-04-21] MEDS ORDERED: ACYCLOVIR 200 MG CAPSULE PO STA (19:19)
[2020-04-21 19:42] VITALS: BP 126/85
== END 2020-04-21 19:42 | disposition home or self-care (01) ==
LOC: ED 17:44
DX: B02.9 Zoster without complications (principal)
CPT/HCPCS: 99283; A9270